=== PATIENT | female | born 1985 | race Caucasian/White ===

== ENCOUNTER 2016-12-18 13:32 | Emergency (ER) | payer OTHER ==
[2016-12-18 14:32] LABS: ABSOLUTE NEUTROPHIL COUNT 3.6 K/mm3 (1.8-7.7); BASO % 0.4 % (0.2-1.0); EOS # 0.1 (0.0-0.5); EOS % 1.2 % (0.9-2.9); HEMATOCRIT 34.8 % (37.0-47.0); HEMOGLOBIN 11.7 gm/l (12.0-16.0); IMM NEUT% 0.4 % (0-1); LYMPH # 1.5 (1.0-4.8); LYMPH % 26.5 % (15-45); MEAN CELL VOLUME 91.1 fl (81.0-99.0); MEAN CORPUSCULAR HEMOGLOBIN 30.6 pg (27.0-31.0); MEAN CORPUSCULAR HGB CONC 33.6 g/dl (33.0-37.0); MEAN PLATELET VOLUME 11.5 fl (7.4-10.4); MONO # 0.4 (0.0-0.8); MONO % 7.3 % (4-12); NEUT % 64.2 % (43-75); PLATELET COUNT 148 K/mm3 (130-400)
[2016-12-18 14:47] LABS: TROPONIN I < 0.01 ng/ml (0.0-0.06)
[2016-12-18 14:48] LABS: ALB/GLOB RATIO 1.1 (>1.0); ALBUMIN 3.7 gm/dL (3.5-5.7); CALCIUM 9.4 mg/dL (8.6-10.3)
[2016-12-18 14:51] LABS: CKMB ISOENZYME 0.7 ng/ml (0.6-6.3)
--- NOTE | 2016-12-18 15:50 | RAD ---
Exam: Two-view chest COMPARISON: 12/16/2016 INDICATION: Chest pain. FINDINGS: PA and lateral views of the chest were obtained. Right upper extremity PICC remains, with the tip projecting over the cavoatrial junction. Cardiac silhouette is within normal limits. Lungs are well-inflated. There is no focal airspace disease or pleural effusion. Bones of the chest wall within normal limits. IMPRESSION: No acute pulmonary process.
== END 2016-12-18 15:40 | disposition home or self-care (01) ==
LOC: ED 13:32
DX: R07.89 Other chest pain (principal); I10 Essential (primary) hypertension; E11.9 Type 2 diabetes mellitus without complications; R11.2 Nausea with vomiting, unspecified

== ENCOUNTER 2017-02-15 19:13 | Emergency (ER) | payer OTHER ==
[2017-02-15 19:43] LABS: ABSOLUTE NEUTROPHIL COUNT 2.6 K/mm3 (1.8-7.7); BASO # 0.1 K/mm3 (0.0-0.2); EOS # 0.1 (0.0-0.5); EOS % 2.1 % (0.9-2.9); HEMATOCRIT 38.5 % (37.0-47.0); HEMOGLOBIN 12.6 gm/l (12.0-16.0); IMM NEUT # 0.1 K/mm3 (0-0.2); IMM NEUT% 0.9 % (0-1); LYMPH # 2.6 (1.0-4.8); MEAN CELL VOLUME 91.4 fl (81.0-99.0); MEAN CORPUSCULAR HEMOGLOBIN 29.9 pg (27.0-31.0); MEAN CORPUSCULAR HGB CONC 32.7 g/dl (33.0-37.0); MEAN PLATELET VOLUME 11.5 fl (7.4-10.4); MONO # 0.3 (0.0-0.8); MONO % 5.2 % (4-12); NEUT % 44.8 % (43-75); PLATELET COUNT 191 K/mm3 (130-400); RED CELL DISTRIBUTION WIDTH 12.5 % (11.5-14.5)
[2017-02-15 19:59] LABS: ALB/GLOB RATIO 1.3 (>1.0); ALT/SGPT 38 U/L (7-52); BLOOD UREA NITROGEN 9 mg/dL (7-25); BUN/CREATININE RATIO 11 (6-20); CALCIUM 9.3 mg/dL (8.6-10.3); GLOMERULAR FILTRATION RATE 83 mL/min (60-107); LIPASE 18 U/L (11-82)
[2017-02-15 20:01] LABS: ACETAMINOPHEN < 10 ug/ml; SALICYLATE < 5 mg/dl (0-30)
[2017-02-15 20:06] LABS: TROPONIN I < 0.01 ng/ml (0.0-0.06)
[2017-02-15 20:08] LABS: ACETONE,SERUM NEGATIVE (NEGATIVE)
[2017-02-15 20:11] LABS: CKMB ISOENZYME 0.8 ng/ml (0.6-6.3)
[2017-02-15 20:15] LABS: PH,URINE 6.5 (5.0-8.0); URINE BILIRUBIN NEGATIVE (NEGATIVE); URINE BLOOD NEGATIVE (NEGATIVE); URINE GLUCOSE (UA) 3+ (NEGATIVE); URINE LEUKOCYTE ESTERASE NEGATIVE (NEGATIVE); URINE NITRITE NEGATIVE (NEGATIVE); URINE PROTEIN NEGATIVE (NEGATIVE); URINE UROBILINOGEN NORMAL (0-1 mg/dl)
[2017-02-15 20:22] LABS: URINE APPEARANCE CLEAR; URINE COLOR LIGHT YELLOW
[2017-02-15 20:50] LABS: AMPHETAMINES/METHAMPHETAMINES NEGATIVE (NEGATIVE); COCAINE NEGATIVE (NEGATIVE); MARIJUANA POSITIVE (NEGATIVE); METHADONE NEGATIVE (NEGATIVE); OPIATES NEGATIVE (NEGATIVE); TRICYCLIC ANTIDEPRESSANTS NEGATIVE (NEGATIVE)
== END 2017-02-15 22:33 | disposition home or self-care (01) ==
LOC: ED 19:13
DX: R56.9 Unspecified convulsions (principal); F10.129 Alcohol abuse with intoxication, unspecified; Y90.8 Blood alcohol level of 240 mg/100 ml or more; L97.929 Non-pressure chronic ulcer of unspecified part of left lower leg with unspecified severity; L97.919 Non-pressure chronic ulcer of unspecified part of right lower leg with unspecified severity; E10.9 Type 1 diabetes mellitus without complications; I10 Essential (primary) hypertension; E66.9 Obesity, unspecified; F12.10 Cannabis abuse, uncomplicated; Z79.4 Long term (current) use of insulin

== ENCOUNTER 2017-03-10 04:15 | Emergency (ER) | payer OTHER ==
[2017-03-10] MEDS ORDERED: DOXYCYCLINE HYCLATE 100 MG TABLET ONE (04:51)
[2017-03-10] MEDS ORDERED: DIPHTH,PERTUSS(ACELL),TET VAC 0.5 ML VIAL IM V ONE (04:56)
[2017-03-10] MEDS ORDERED: FENTANYL 100 MCG/2 ML VIAL ONE (04:56)
[2017-03-10] MEDS ORDERED: ACETAMINOPHEN 500 MG TABLET ONE (04:56)
== END 2017-03-10 05:33 | disposition home or self-care (01) ==
LOC: ED 04:15
DX: L02.01 Cutaneous abscess of face (principal); E11.9 Type 2 diabetes mellitus without complications; I12.9 Hypertensive chronic kidney disease with stage 1 through stage 4 chronic kidney disease, or unspecified chronic kidney disease; N18.9 Chronic kidney disease, unspecified; Z86.14 Personal history of Methicillin resistant Staphylococcus aureus infection; Z91.14 Patient's other noncompliance with medication regimen; Z23 Encounter for immunization
CPT/HCPCS: 90715; 90471; 99283 ×2; 10060 ×2; 96374; J3010; A9270 ×2